=== PATIENT | male | born 1995 | race Caucasian/White ===

== ENCOUNTER 2016-06-05 01:37 | Emergency (ER) | payer OTHER ==
[~2016-06-05] VITALS: Ht 175.3 cm; Wt 56.7 kg
[~2016-06-05 01:37] MED LIST: ADVAIR HFA 45MC1 AER INH; ALBUTEROL SUL5 MG/M1 IH; ALBUTEROL2.5 MG/0.5 INH; ALBUTEROL2.5 MG/31 INH; CIPROFLOXACIN500 M1 PO; DELTASONE20 MG PO; ERYTHROMYCIN E3.5 G2 OP; FLAGYL500 MG PO; PREDNISONE 20 M20 MG PO; PREDNISONE50 MG PO; PROAIR HFA8.5 GM INH; ULTRAM 50MG TAB50 MG PO; VENTOLIN HFA 1818 GM INH; ZPAK PO
[2016-06-05] MEDS ORDERED: PEPCID40 MG PO (02:21)
[2016-06-05] MEDS ORDERED: PROAIR HFA8.5 GM INH (02:21)
[2016-06-05 03:18] VITALS: BP 110/80
[2016-08-15] MEDS ORDERED: VENTOLIN HFA 1818 GM INH (10:00)
[2016-08-15] MEDS ORDERED: ALBUTEROL2.5 MG/0.5 INH (10:00)
[2016-08-15] MEDS ORDERED: PREDNISONE 20 M20 MG PO (10:00)
== END 2016-06-05 03:30 | disposition home or self-care (01) ==
LOC: ER 01:37
DX: J45.909 Unspecified asthma, uncomplicated (principal); K29.70 Gastritis, unspecified, without bleeding; R10.11 Right upper quadrant pain; F32.9 Major depressive disorder, single episode, unspecified; F17.210 Nicotine dependence, cigarettes, uncomplicated; Z91.013 Allergy to seafood

== ENCOUNTER 2017-02-04 05:15 | Emergency (ER) | payer OTHER ==
[~2017-02-04] VITALS: Ht 180.3 cm; Wt 74.8 kg
[~2017-02-04 05:15] MED LIST changes: +PEPCID40 MG PO
[2017-02-04 05:24] VITALS: BP 130/88
[2017-02-04] MEDS ORDERED: VENTOLIN HFA 1818 GM INH (05:35)
== END 2017-02-04 06:01 | disposition home or self-care (01) ==
LOC: ER 05:15
DX: J45.901 Unspecified asthma with (acute) exacerbation (principal); F32.9 Major depressive disorder, single episode, unspecified; F17.210 Nicotine dependence, cigarettes, uncomplicated; Z91.013 Allergy to seafood

== ENCOUNTER 2017-04-04 00:16 | Inpatient (IN) | payer OTHER ==
[~2017-04-04] VITALS: Ht 172.7 cm; Wt 62.7 kg
[2017-04-04] VITALS (7 sets, daily range): BP systolic 112–133; BP diastolic 61–86
--- NOTE | ~2017-04-04 | HC ---
[facility] [place] [address] CONSULTATION Name: AMBAR FREITAS Room #: 350-[facility] IN M.R.#: [id number] Admission: 04/04/17 Attend Phys: Juan Diego Slater MD Discharge: 04/05/17 Date of : 89 Report #: [id number] THIS REPORT FOR: //name// CC: NAVID Slater PULMONARY CONSULTATION REFERRAL PHYSICIAN: Gt Vincent DO REASON FOR REFERRAL: Asthma. PRIMARY CARE PHYSICIAN: Dr. Navid Kim HISTORY OF PRESENT ILLNESS: The patient is a transgender male who presents to the Emergency Room with dyspnea. A Pulmonary consultation is requested. The patient states that he was diagnosed with asthma as a child. He is normally on albuterol as a maintenance inhaler. Recently, he has had increasing dyspnea. He was given prednisone along with bronchodilators. Symptoms did not improve and he presented to the Emergency Room. The patient unfortunately smokes about a pack a day. He states that he is going to quit. Otherwise, denies any chest pain, productive cough, night sweats or chills, nausea, vomiting, diarrhea. PAST MEDICAL HISTORY: Notable for childhood asthma, depression, bulimia/anorexia, history of hemorrhoids, transgender. PAST SURGICAL HISTORY: Negative. ALLERGIES: None to medications. HE IS ALLERGIC TO SHRIMP, WHICH CAUSES FACIAL SWELLING. HOME MEDICATIONS: Include albuterol, recent course of prednisone. FAMILY HISTORY: Noncontributory. SOCIAL HISTORY: Smokes about a pack a day. Denies any alcohol use or recreational drug use. PHYSICAL EXAMINATION: GENERAL: He is awake, alert, in no apparent distress. VITAL SIGNS: Temperature is 98 degrees Fahrenheit, pulse is 90, respiratory rate is 20, blood pressure 120/78 mmHg, saturation is 95%. [facility] [address] [place] [address] CONSULTATION Name: AMBAR FREITAS Room #: 350-[facility] IN M.R.#: [id number] Admission: 04/04/17 Attend Phys: Juan Diego Slater MD Discharge: 04/05/17 Date of : 89 Report #: [id number] HEENT: Unremarkable. NECK: Supple, without any lymphadenopathy or thyromegaly. CHEST: Breath sounds are good with mild expiratory wheezes. CARDIOVASCULAR: Normal S1, S2. There are no murmurs or gallop. There is no JVD. There is no carotid bruit. Pulses are 2+/4+ bilaterally. ABDOMEN: Soft, nontender, no organomegaly or masses felt. GENITOURINARY: Deferred. RECTAL: Deferred. EXTREMITIES: There is no edema, cyanosis or clubbing. LABORATORY DATA: Chest x-ray is clear. Electrolytes are normal. WBC 10,000; hemoglobin is 15.1; platelets are normal. Very borderline elevated eosinophilia. No bandemia. IMPRESSION: 1. Acute respiratory distress due to exacerbation of chronic obstructive pulmonary disease due to ongoing tobacco use. 2. Lifelong history of asthma, felt to be stable, intermittent. 3. Tobacco abuse. I strongly recommended smoke cessation. RECOMMENDATION: I agree with current treatment plans including bronchodilators and corticosteroids. In terms of inhaled steroid therapy as a maintenance treatment, the patient would benefit from inhaled corticosteroids and bronchodilators along with albuterol p.r.n. Short course of prednisone is recommended after 5-7 days. Prednisone at 40 mg once a day for 5 days would be sufficient. As mentioned above, I strongly recommend smoke cessation. This was discussed with the patient. We discussed that ongoing tobacco use could cause worsening asthma along with exacerbation, which may lead to . Otherwise, not much to add from pulmonary standpoint at this time. Thank you for this consultation. <ELECTRONICALLY SIGNED> By: Pepe Riley MD 04/05/17 [id number] Pepe Riley MD /nt
[~2017-04-04 00:16] MED LIST changes: +ZOFRAN ODT4 MG PO
[2017-04-04 02:53] LABS: ABSOLUTE NEUTROPHILS 6.8 thou/uL (1.4-8.2); BASOPHILS 0.7 % (0.0-2.0); EOSINOPHILS 3.1 % (0.0-3.0); HEMATOCRIT 43.3 % (42.0-52.0); HEMOGLOBIN 15.1 gm/dL (14.0-18.0); LYMPHOCYTES 20.1 % (24.0-44.0); MCH 29.8 pg (26.0-34.0); MCHC 34.9 g/dL (28.0-37.0); MCV 85.6 fL (80.0-100.0); MONOCYTES 8.6 % (1.0-8.0); PLATELET COUNT 205 thou/uL (150-400); POLYS 67.5 % (36.0-66.0); RBC 5.06 mil/uL (4.50-6.00); RDW 12.6 % (10.5-14.5)
[2017-04-04 02:58] LABS: CALCIUM 8.8 mg/dL (8.5-10.1); CREATININE 0.8 mg/dL (0.7-1.3); POTASSIUM 3.5 mmol/L (3.5-5.1)
[2017-04-04 03:06] LABS: MANUAL DIFF NO
[2017-04-04] MEDS ORDERED: VENTOLIN HFA 1818 GM INH (03:33)
[2017-04-05 04:21] VITALS: BP 109/47
[2017-04-05 08:08] VITALS: BP 111/56
[2017-04-05 11:31] VITALS: BP 113/49
[2017-04-05] MEDS ORDERED: PREDNISONE 10 M10 MG PO (14:09)
[2017-04-05] MEDS ORDERED: FLOVENT HFA 4444 MCG INH (14:11)
[2017-04-05 14:18] VITALS: BP 113/49
== END 2017-04-05 15:05 | disposition home or self-care (01) | DRG 189 ==
LOC: ER 00:16 → 3W 02:17 → EROBS 02:17 → 3W 02:46
PROVIDERS: Emergency Medicine
DX: J96.01 Acute respiratory failure with hypoxia (principal); J45.901 Unspecified asthma with (acute) exacerbation; J44.1 Chronic obstructive pulmonary disease with (acute) exacerbation; F32.9 Major depressive disorder, single episode, unspecified; F17.210 Nicotine dependence, cigarettes, uncomplicated; Z79.899 Other long term (current) drug therapy; Z23 Encounter for immunization
CPT/HCPCS: 10080

== ENCOUNTER 2017-06-15 13:57 | Emergency (ER) | payer OTHER ==
[~2017-06-15] VITALS: Ht 172.7 cm; Wt 56.7 kg
[~2017-06-15 13:57] MED LIST changes: +FLOVENT HFA 4444 MCG INH; +PREDNISONE 10 M10 MG PO
[2017-06-15] MEDS ORDERED: PREDNISONE 20 M20 MG PO (14:31)
[2017-06-15] MEDS ORDERED: PULMICORT0.25 MG/3 INH (14:31)
[2017-06-15] MEDS ORDERED: VENTOLIN HFA 1818 GM INH (14:31)
[2017-06-15] MEDS ORDERED: FLOVENT HFA 4444 MCG INH (14:34)
[2017-06-15 14:51] VITALS: BP 115/70
== END 2017-06-15 14:51 | disposition home or self-care (01) ==
LOC: ER 13:57
DX: Z76.0 Encounter for issue of repeat prescription (principal); J45.901 Unspecified asthma with (acute) exacerbation; F32.9 Major depressive disorder, single episode, unspecified; K64.9 Unspecified hemorrhoids; F17.210 Nicotine dependence, cigarettes, uncomplicated; Z91.013 Allergy to seafood

== ENCOUNTER 2018-06-05 23:52 | Emergency (ER) | payer OTHER ==
[~2018-06-05] VITALS: Ht 172.7 cm; Wt 64.0 kg
[~2018-06-05 23:52] MED LIST changes: +PULMICORT0.25 MG/3 INH
[2018-06-06] MEDS ORDERED: MEDROLDOSEPACK PO (01:11)
[2018-06-06 02:04] VITALS: BP 123/71
== END 2018-06-06 02:05 | disposition home or self-care (01) ==
LOC: ER 23:52
DX: J45.901 Unspecified asthma with (acute) exacerbation (principal); F17.210 Nicotine dependence, cigarettes, uncomplicated; F32.9 Major depressive disorder, single episode, unspecified; Z91.013 Allergy to seafood

== ENCOUNTER 2018-07-09 03:04 | Emergency (ER) | payer OTHER ==
[~2018-07-09] VITALS: Ht 172.7 cm; Wt 64.0 kg
[~2018-07-09 03:04] MED LIST changes: +MEDROLDOSEPACK PO
[2018-07-09 03:44] VITALS: BP 130/76
== END 2018-07-09 03:45 | disposition home or self-care (01) ==
LOC: ER 03:04
DX: L02.31 Cutaneous abscess of buttock (principal); J45.909 Unspecified asthma, uncomplicated; F32.9 Major depressive disorder, single episode, unspecified; F17.210 Nicotine dependence, cigarettes, uncomplicated; Z91.013 Allergy to seafood

== ENCOUNTER 2018-09-14 19:59 | Emergency (ER) | payer BC ==
[~2018-09-14] VITALS: Ht 172.7 cm; Wt 67.1 kg
[2018-09-14] MEDS ORDERED: PREDNISONE 20 M20 MG PO (22:17)
[2018-09-14] MEDS ORDERED: PENICILLIN VK500 M1 PO (22:17)
[2018-09-14 22:27] VITALS: BP 117/75
== END 2018-09-14 22:27 | disposition home or self-care (01) ==
LOC: ER 19:59
DX: J45.901 Unspecified asthma with (acute) exacerbation (principal); J02.0 Streptococcal pharyngitis; J45.909 Unspecified asthma, uncomplicated; F32.9 Major depressive disorder, single episode, unspecified; K64.9 Unspecified hemorrhoids; F17.210 Nicotine dependence, cigarettes, uncomplicated; Z91.013 Allergy to seafood

== ENCOUNTER 2019-02-20 00:08 | Emergency (ER) | payer BC ==
[~2019-02-20] VITALS: Ht 172.7 cm; Wt 54.4 kg
[~2019-02-20 00:08] MED LIST changes: +PENICILLIN VK500 M1 PO
[2019-02-20 00:13] VITALS: BP 129/75
[2019-02-20 00:44] LABS: URINE BILIRUBIN NEGATIVE (Negative); URINE BLOOD NEGATIVE (Negative); URINE CLARITY CLEAR; URINE COLOR YELLOW; URINE GLUCOSE-RANDOM* NEGATIVE (Negative); URINE KETONES NEGATIVE (Negative); URINE LEUKOCYTES NEGATIVE (Negative); URINE NITRITE NEGATIVE (Negative); URINE PROTEIN (DIPSTICK) NEGATIVE (Negative); URINE SPECIFIC GRAVITY 1.025 (1.005-1.035); URINE UROBILINOGEN 0.2 E.U./dl (0.2-1.0)
[2019-02-20] MEDS ORDERED: HORMONE REPLACEMENT (01:01)
[2019-02-20] MEDS ORDERED: VENTOLIN HFA 1818 GM (01:01)
[2019-02-20] MEDS ORDERED: VENTOLIN HFA 1818 GM INH (01:02)
== END 2019-02-20 01:35 | disposition home or self-care (01) ==
LOC: ER 00:08
PROVIDERS: Emergency Medicine
DX: Z20.2 Contact with and (suspected) exposure to infections with a predominantly sexual mode of transmission (principal); F17.210 Nicotine dependence, cigarettes, uncomplicated; J45.909 Unspecified asthma, uncomplicated; K64.9 Unspecified hemorrhoids; F32.9 Major depressive disorder, single episode, unspecified; Z91.013 Allergy to seafood

== ENCOUNTER 2020-02-22 01:49 | Emergency (ER) | payer OTHER ==
[~2020-02-22] VITALS: Ht 162.6 cm; Wt 59.0 kg
[~2020-02-22 01:49] MED LIST changes: +HORMONE REPLACEMENT; +VENTOLIN HFA 1818 GM
[2020-02-22 02:30] VITALS: BP 113/66
== END 2020-02-22 02:31 | disposition home or self-care (01) ==
LOC: ER 01:49
DX: U07.1 COVID-19 (principal); R11.2 Nausea with vomiting, unspecified; J45.909 Unspecified asthma, uncomplicated; F32.9 Major depressive disorder, single episode, unspecified; F17.210 Nicotine dependence, cigarettes, uncomplicated; Z79.899 Other long term (current) drug therapy; Z91.013 Allergy to seafood

== ENCOUNTER 2020-03-10 10:56 | Emergency (ER) | payer OTHER ==
[~2020-03-10] VITALS: Ht 172.7 cm; Wt 62.1 kg
[2020-03-10 11:04] VITALS: BP 130/67
== END 2020-03-10 11:30 | disposition home or self-care (01) ==
LOC: ER 10:56
DX: U07.1 COVID-19 (principal); J45.909 Unspecified asthma, uncomplicated; F17.210 Nicotine dependence, cigarettes, uncomplicated; Z91.013 Allergy to seafood